=== PATIENT | female | born 1975 | race Caucasian/White ===

== ENCOUNTER 2025-01-31 06:31 | Day surgery (SDC) | payer OTHER, SELFPAY | END 2025-01-31 12:25 | disposition home or self-care (01) | LOC: GI 06:31 | PROVIDERS: ATTENDING PHYSICIAN Internal Medicine Gastroenterology | DX: Z12.11 Encounter for screening for malignant neoplasm of colon (principal); K64.0 First degree hemorrhoids; D12.5 Benign neoplasm of sigmoid colon; D12.3 Benign neoplasm of transverse colon; D12.4 Benign neoplasm of descending colon | CPT/HCPCS: 45385; 45381; 45380; 88305 ==